=== PATIENT | male | born 1995 | race Caucasian/White ===

== ENCOUNTER 2021-03-06 11:25 | Emergency (ER) | payer BC, SELFPAY ==
--- NOTE | ~2021-03-06 | US_ITS ---
EXAMINATION: US right upper quadrant DATE: 03/06/2021 15:34 INDICATION: Epigastric abdominal pain. Right upper quadrant abdominal pain. TECHNIQUE: Multiple grayscale and Doppler ultrasound images of the abdomen were obtained. COMPARISON: None FINDINGS: The visualized portions of the head and body of the pancreas are normal. The liver is heber l without focal lesion. No liver surface nodularity. There is normal flow in main portal vein. The ga llbladder is normal in size and contains sludge. No gallstones or gallbladder wall thickening. There was no sonographic Moe sign. The common duct is normal and measures 3 mm. IMPRESSION: 1. No etiology for the patient's symptoms. Reviewed, dictated and finalized at location A.
--- NOTE | ~2021-03-06 | XR_ITS ---
EXAMINATION: XR chest 2V EXAM DATE: 03/06/2021 12:01 INDICATION: palpitations, a blood pressure, tingling sensation. TECHNIQUE: Frontal and lateral projections of the chest obtained and reviewed. There is no prior sveta dy for comparison. FINDINGS: The lungs are clear. There are no pleural effusions. The cardiomediastinal silhouette is within normal limits. There is no pneumothorax suspected. The bones and soft tissues are unremarkab le. IMPRESSION: No acute cardiopulmonary findings. Reviewed, dictated and finalized at location A.
--- NOTE | 2021-03-06 11:30 | ECG_ITS ---
Measurements Intervals [place] Rate: 70 P: 35 [place]: 151 QRS: 47 QRSD: 85 T: 50 QT: 387 QTc: 418 Interpretive Statements SINUS RHYTHM BASELINE ARTIFACT- I, II, AVR, V3-V6 NORMAL ECG Electronically Signed On 03-06-2021 16:45:14 CDT by Jono Wright D.O.
[2021-03-06 11:33] VITALS: BP 150/94; PULSE 89; RESP 20; TEMP 36.6; O2SAT 100
[2021-03-06 11:45] LABS: Basophils Percent Auto 0.6 % (0.2-1.2); Eosinophils Percent Auto 0.1 % (0-4.4); Hematocrit 46.5 % (42.0-52.0); Hemoglobin 17.1 g/dL (14.0-18.0); Immature Granulocyte Absolute 0.04 K/mm3 (0.00-0.031); Immature Granulocyte Percent A 0.6 % (0-0.5); Lymphocytes Absolute Auto 1.94 K/mm3 (0.9-3.2); Lymphocytes Percent Auto 27.7 % (18.3-44.2); Mean Corpuscular HGB Conc 36.8 g/dl (32-36); Mean Corpuscular Hemoglobin 32.8 pg (26-34); Mean Corpuscular Volume 89.1 fl (80-100); Mean Platelet Volume 9.5 fl (7.4-10.4); Monocytes Absolute Auto 0.5 K/mm3 (0.1-0.6); Monocytes Percent Auto 7.1 % (2.6-8.5); Neutrophils Absolute Auto 4.5 K/mm3 (1.3-6.7); Neutrophils Percent Auto 63.9 % (45.5-73.1); Platelet Count Result 269 k/mm3 (150-375); Red Blood Count 5.22 M/mm3 (4.6-6.20); Red Cell Distribution Width 11.7 % (11.5-14.5)
[2021-03-06 11:54] LABS: INR 1.1; Prothrombin Time 13.7 Seconds (11.1-14.7)
[2021-03-06 11:55] LABS: Partial Thromboplastin Time 27.4 SECONDS (22.3-36.8)
[2021-03-06 12:08] LABS: Anion Gap 14 mmol/L (8-16); Blood Urea Nitrogen 13 mg/dL (9-20); Calcium 9.8 mg/dL (8.4-10.2); Carbon Dioxide 25 mmol/L (22-30); Chloride 103 mmol/L (98-107); Estimated CRCL calculation 104 ml/min; Estimated Glomerular Filt Rate > 60; Glucose 112 mg/dL (65-110); Potassium 3.6 mmol/L (3.4-5.0); Sodium 142 mmol/L (137-145)
[2021-03-06 12:16] LABS: Troponin I < 0.012 ng/mL (0.000-0.034)
[2021-03-06 15:22] VITALS: BP 127/83; PULSE 60; RESP 18; O2SAT 98
[2021-03-06] MEDS: FAMOTIDINE 20 MG/2 ML VIAL IV PUSH (15:46)
[2021-03-06 15:59] LABS: D Dimer 0.27 ug/mL (<0.48)
--- NOTE | 2021-03-06 16:57 | ED.ARRPALP ---
HPI - Arrhythmia/Palpitations General Chief Complaint: Arrhythmia/Palpitations Stated Complaint: palpitations Time Seen by Provider: 03/06/21 14:47 Source: patient Mode of arrival: EMS Limitations: no limitations History of Present Illness HPI narrative: 25 year old male with no significant PMH complainig of palpitations, chest pressure and shortness of breath. Patient states it feel like his heart is pounding extra hard. Palpitations started 6 hours [employer] while patient was on a road trip. No previous history of same. 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 Palpitations worse at rest and with activity, improve with nothing. States since he is athletic pulse is usually in 50's. No recent surgery, had only traveled [address] MD complaint: heart racing and palpitations Onset (ago): hour(s) (6) Duration: constant Severity: moderate Context: occurred during rest, occurred during exertion, recent drug use (denies) and change in medication (no meds) Arrhythmia history: other (none) Associated symptoms: chest pain (chest pressure left anterior, no pain, non-radiating, constant), shortness of breath, nausea and anxiety Treatments prior to arrival: other (none) Related Data Allergies Allergy/AdvReac Type Severity Reaction Status Date / Time No Known Allergies Allergy Verified 03/06/21 15:46 Review of Systems Review of Systems: CONSTITUTIONAL: no fever, no weight loss, no confusion EYES: no vision changes, no eye pain ENT: no rhinorrhea, no sore throat, no difficulty swallowing CARDIOVASCULAR: positive for chest pressure, no leg edema, positive for palpitations RESPIRATORY: no cough, positive for shortness of breath, no hemoptysis GASTROINTESTINAL: no abdominal pain, positive for nauseanausea, no vomiting, no diarrhea GENITOURINARY: no flank pain, no dysuria, no hematuria SKIN: no rash, no jaundice MUSCULOSKELETAL: no back pain, no trauma. NEUROLOGIC: No headache, no dizziness, no focal weakness PSYCHIATRIC: No hallucinations, no suicidal ideation Exam Narrative: General: alert, afebrile, answering all questions appropriately Head: normocephalic, atraumatic Eyes: EOMI bilaterally, anicteric, no injection ENT: moist mucous membranes, oropharynx patent, no rhinorrhea Neck: supple, trachea midline, no JVD Chest: equal chest rise bilaterally, no chest wall trauma noted Lungs: clear to auscultation bilaterally, respirations unlabored CV: regular rate, no WENDI B, calf size equal bilaterally Abd: soft, non-distended, non-tender, no rebound, no gaurding, POSITIVE Moe's : no CVA tenderness B, bladder non-distended EXT: no deformity noted, moving all extremities equally Skin: warm, dry, no pallor Neuro: alert, oriented x 3; CN 2-12 grossly intact, no dysarthria Psych: anxious affect, appropriate, thought content normal Course Course Emergency Course: Patient remains in normal sinus rhythm with rate never higher than 89 in the ED. No skipped beats check to monitor no episodes of tachycardia or arrhythmia. Or dysrhythmia. Right upper quadrant is negative for acute process, chest x-ray is negative, EKG is normal sinus rhythm with no changes troponin is negative after 6 hours of chest pressure. D-dimer is negative patient is also PERC negative. Spoke at length with patient regarding symptoms. Patient states he does recall that he never uses caffeine but on his road trip he had stopped at convenience store and got a bang sports drink and symptoms started shortly after that. Patient is chest pain free, normal sinus rhythm on the monitor. Will discharge home. Patient to return for any concern. Vital Signs Vital signs: Vital Signs Temperature 36.6 C 03/06/21 11:33 Pulse Rate 89 03/06/21 11:33 Respiratory Rate 20 03/06/21 11:33 Blood Pressure 150/94 H 03/06/21 11:33 Pulse Oximetry 100 03/06/21 11:33 Temperature 36.6 C 03/06/21 11:33 Pulse Rate 68 03/06/21 17:13 Respiratory Rate 17 03/06/21 17:13 Blood Pr
[2021-03-06 17:13] VITALS: BP 127/85; PULSE 68; RESP 17; O2SAT 100
== END 2021-03-06 17:16 | disposition home or self-care (01) ==
PROVIDERS: General Practice; Emergency Provider Emergency Medicine
DX: R00.2 Palpitations (principal)
CPT/HCPCS: 36415; 71046; 76705; 80048; 84484; 85025; 85380; 85610; 85730; 93005; 96374; 99284